=== PATIENT | male | born 1945 | race American Indian/Alaskan Native ===

== ENCOUNTER 2017-05-27 00:13 | Inpatient (IN) | payer MEDICARE, OTHER ==
[2017-05-27] MEDS ORDERED: NACL 0.9% 1000 ML 1,000 ML IV ONE (00:28)
[2017-05-27] MEDS ORDERED: LEVOPHED DRIP 4 MG/NS 250 ML 4 MG/250 ML BAG IV ONE (00:35)
--- NOTE | 2017-05-27 01:00 | Emergency Department Report ---
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 EMS reports that family states patient has been refusing to eat and take most of his medication for several days. At the scene patient was hypoxic with O2 sat in the 70s on room air because patient took off his nasal cannula. They state that patient does not appear like he wants excessive measures however , however there isn't a DO NOT RESUSCITATE signed in family states that patient has full code. Patient is lethargic but open eyes to voice. EMS reports saturation improved to the 80s with our [place]. Patient placed on BiPAP support immediately upon arrival. Upon family arrival they state the patient was recently admitted to [facility] last week and required dialysis. Patient only agreed to one dialysis and then was subsequently transferred to hospice. Dialysis catheter was removed prior to discharge into hospice. Upon arrival here patient family member hospice nurse and was discharged from hospice - Related Data Home Medications Medication Instructions Recorded Confirmed Last Taken Oxycodone HCl [Roxicodone] 5 mg PO Q6HR PRN 05/27/17 05/27/17 Unknown fentaNYL [Duragesic 50mcg] 1 each TD Q72HR 05/27/17 05/27/17 Unknown Allergies Allergy/AdvReac Type Severity Reaction Status Date / Time lisinopril AdvReac Angioedema Verified 11/03/13 10:03 ED Review of Systems ROS: Stated complaint: TJ Other details as noted in HPI Comment: Unobtainable due to pts medical conditions ED Past Medical Hx - Past Medical History Previous Medical History?: Yes Hx Hypertension: Yes Hx of Cancer: Yes (small cell caricinoma) Additional medical history: cholestorol - Surgical History Additional Surgical History: unknown - Social History Smoking Status: Unknown if ever smoked - Medications Home Medications: Home Medications Medication Instructions Recorded Confirmed Last Taken Type Oxycodone HCl [Roxicodone] 5 mg PO Q6HR PRN 05/27/17 05/27/17 Unknown History fentaNYL [Duragesic 50mcg] 1 each TD Q72HR 05/27/17 05/27/17 Unknown History ED Physical Exam - General Limitations: Physical Limitation - Other Other exam information: General: Limited by depressed mental Head exam: Atraumatic, normocephalic Eyes exam: Normal appearance, pupils equal reactive to light ENT: Dry mucous Neck exam: Normal inspection Respiratory exam: Bilateral rhonchi, tachypnea Cardiovascular: Cardiac regular rhythm Abdomen: Soft, nondistended, and nontender, with normal bowel sounds, no rebound, or guarding Rectal: Guaiac positive black stool Extremity: Lower extremity edema Back: Normal Inspection Neurologic: Lethargic, opens eyes to voice, equal hand cleaning specialist, sensation grossly intact Skin: Warm ED Course Vital Signs 05/27/17 05/27/17 05/27/17 00:16 00:17 00:25 Temperature Pulse Rate 125 H 120 H 119 H Respiratory 34 H 36 H Rate Blood Pressure Blood Pressure 55/30 [Right] O2 Sat by Pulse 99 Oximetry 05/27/17 05/27/17 05/27/17 00:35 00:45 00:46 Temperature Pulse Rate 116 H 115 H 115 H Respiratory 28 H 18 Rate Blood Pressure 78/36 Blood Pressure 58/37 78/36 [Right] O2 Sat by Pulse 100 100 Oximetry 05/27/17 05/27/17 05/27/17 01:00 01:10 01:24 Temperature Pulse Rate 114 H 112 H 115 H Respiratory 24 21 Rate Blood Pressure Blood Pressure 75/45 85/46 [Right] O2 Sat by Pulse 100 100 Oximetry 05/27/17 01:57 Temperature 98.6 F Pulse Rate Respiratory Rate Blood Pressure Blood Pressure [Right] O2 Sat by Pulse Oximetry - ABG Interpretation Ph: 7.56 PCO2: 24 PO2: 135 Bicarbonate: 21 Interpretation: respiratory alkalosis - Central Line Placement Right IJ Consent Obtained: emergent situation Time Out Performed: Yes Patient Placed on Monitor/Pulse Ox: Yes Prep: mask, gown, gloves Central Line Prep: Chlorhexidine scrub, sterile drapes applied Local Anesthesia Used: Lidocaine 1% Amount of Anesthesia Used (mls): 5 Ultrasound Used for Placement: Yes Central Line Lumen Inserted: triple Bloods Obtained for Lab: Yes Central Line Position: good blood return, sutured in place with nyl Dressing Applied: Tegaderm Post Procedure X-Ray: tip of catheter in good p Patient Tolerated Procedure: well Complications: none ED Medical Decision Making - Lab Data Result diagrams: 05/27/17 00:50 05/27/17 00:50 Lab Results 05/27/17 05/27/17 05/27/17 Range/Units 00:31 00:39 00:50 WBC 0.6 L* (4.5-11.0) K/mm3 RBC 2.48 L (3.65-5.03) M/mm3 Hgb 6.8 L (11.8-15.2) gm/dl Hct 20.3 L (35.5-45.6) % MCV 82 L (84-94) fl MCH 28 (28-32) pg MCHC 34 (32-34) % RDW 18.5 H (13.2-15.2) % Plt Count 12 L* (140-440) K/mm3 Lymph % (Auto) Photographic Colorist Seg Neutrophils % Photographic Colorist PT (12.2-14.9) Sec. INR (0.87-1.13) APTT (24.2-36.6) Sec. POC ABG pH 7.506 H 7.566 H (7.35-7.45) POC ABG pCO2 27.1 L 24.2 L (35-45) POC ABG pO2 43 L 135 H (80-105) POC ABG HCO3 21.4 21.9 POC ABG Total CO2 22 23 POC ABG O2 Sat 84 99 POC ABG Base Excess -2 0 FiO2 100 100 % Sodium (137-145) mmol/L Potassium (3.6-5.0) mmol/L Chloride (98-107) mmol/L Carbon Dioxide (22-30) mmol/L Anion Gap mmol/L BUN (9-20) mg/dL Creatinine (0.8-1.5) mg/dL Estimated GFR ml/min BUN/Creatinine Ratio % Glucose (75-100) mg/dL Lactic Acid (0.7-2.0) mmol/L Calcium (8.4-10.2) mg/dL Total Bilirubin (0.1-1.2) mg/dL AST (5-40) units/L ALT (7-56) units/L Alkaline Phosphatase (35-129) units/L Total Creatine Kinase (55-170) units/L CK-MB (CK-2) (0.0-4.0) ng/mL CK-MB (CK-2) Rel Index (0-4) Troponin T (0.00-0.029) ng/mL NT-Pro-B Natriuret Pep (0-900) pg/mL Total Protein (6.3-8.2) g/dL Albumin (3.9-5) g/dL Albumin/Globulin Ratio % Blood Type Antibody Screen 05/27/17 05/27/17 05/27/17 Range/Units 00:50 00:50 00:50 WBC (4.5-11.0) K/mm3 RBC (3.65-5.03) M/mm3 Hgb (11.8-15.2) gm/dl Hct (35.5-45.6) % MCV (84-94) fl MCH (28-32) pg MCHC (32-34) % RDW (13.2-15.2) % Plt Count (140-440) K/mm3 Lymph % (Auto) Seg Neutrophils % PT 15.8 H (12.2-14.9) Sec. INR 1.27 H (0.87-1.13) APTT 45.9 H (24.2-36.6) Sec. POC ABG pH (7.35-7.45) POC ABG pCO2 (35-45) POC ABG pO2 (80-105) POC ABG HCO3 POC ABG Total CO2 POC ABG O2 Sat POC ABG Base Excess FiO2 % Sodium 155 H (137-145) mmol/L Potassium 4.2 (3.6-5.0) mmol/L Chloride 117.6 H (98-107) mmol/L Carbon Dioxide 21 L (22-30) mmol/L Anion Gap 21 mmol/L BUN 82 H (9-20) mg/dL Creatinine 2.8 H (0.8-1.5) mg/dL Estimated GFR 27 ml/min BUN/Creatinine Ratio 29.28 % Glucose 77 (75-100) mg/dL Lactic Acid (0.7-2.0) mmol/L Calcium 6.7 L (8.4-10.2) mg/dL Total Bilirubin 2.90 H (0.1-1.2) mg/dL AST 332 H (5-40) units/L ALT 217 H (7-56) units/L Alkaline Phosphatase 346 H (35-129) units/L Total Creatine Kinase 141 (55-170) units/L CK-MB (CK-2) 2.0 (0.0-4.0) ng/mL CK-MB (CK-2) Rel Index 1.4 (0-4) Troponin T 0.135 H* (0.00-0.029) ng/mL NT-Pro-B Natriuret Pep 1268 H (0-900) pg/mL Total Protein 3.6 L (6.3-8.2) g/dL Albumin 1.4 L (3.9-5) g/dL Albumin/Globulin Ratio 0.6 % Blood Type Antibody Screen 05/27/17 05/27/17 Range/Units 00:50 00:50 WBC (4.5-11.0) K/mm3 RBC (3.65-5.03) M/mm3 Hgb (11.8-15.2) gm/dl Hct (35.5-45.6) % MCV (84-94) fl MCH (28-32) pg MCHC (32-34) % RDW (13.2-15.2) % Plt Count (140-440) K/mm3 Lymph % (Auto) Seg Neutrophils % PT (12.2-14.9) Sec. INR (0.87-1.13) APTT (24.2-36.6) Sec. POC ABG pH (7.35-7.45) POC ABG pCO2 (35-45) POC ABG pO2 (80-105) POC ABG HCO3 POC ABG Total CO2 POC ABG O2 Sat POC ABG Base Excess FiO2 % Sodium (137-145) mmol/L Potassium (3.6-5.0) mmol/L Chloride (98-107) mmol/L Carbon Dioxide (22-30) mmol/L Anion Gap mmol/L BUN (9-20) mg/dL Creatinine (0.8-1.5) mg/dL Estimated GFR ml/min BUN/Creatinine Ratio % Glucose (75-100) mg/dL Lactic Acid 4.00 H* (0.7-2.0) mmol/L Calcium (8.4-10.2) mg/dL Total Bilirubin (0.1-1.2) mg/dL AST (5-40) units/L ALT (7-56) units/L Alkaline Phosphatase (35-129) units/L Total Creatine Kinase (55-170) units/L CK-MB (CK-2) (0.0-4.0) ng/mL CK-MB (CK-2) Rel Index (0-4) Troponin T (0.00-0.029) ng/mL NT-Pro-B Natriuret Pep (0-900) pg/mL Total Protein (6.3-8.2) g/dL Albumin (3.9-5) g/dL Albumin/Globulin Ratio % Blood Type O POSITIVE Antibody Screen Negative - EKG Data -: EKG Interpreted by Me (sinus tach rate 111, low voltage QRS) - Radiology Data Radiology results: report reviewed - Medical Decision Making I discussed poor prognosis with daughter and at the bedside. It appears that patient did not want any more aggressive care and refused further dialysis treatment. Now patient is exhibiting signs of multiorgan failure. They have brought the patient to the ER and discharged the patient from hospice. I encouraged family to sign DO NOT RESUSCITATE status condition appears to be end- stage and not reversible. At this time patient is on BiPAP and receiving presses to central line. Patient received 1 L of normal saline, Levophed initiated, Ross patient antibiotics vancomycin and Zosyn ordered. Nephrology consult - Differential Diagnosis sepsis, end-stage lung cancer, UTI, pneumonia, Critical Care Time: Yes Critical care time in (mins) excluding proc time.: 65 Critical care attestation.: If time is entered above; I have spent that time in minutes in the direct care of this critically ill patient, excluding procedure time. ED Disposition Clinical Impression: Small cell carcinoma, Multiorgan failure, Pancytopenia, Septic shock, Guaiac positive stools, Elevated lactic acid level, Hypoxia, Altered mental status Disposition: DC09 OP ADMIT IP TO THIS HOSP Is pt being admited?: Yes Condition: Critical Time of Disposition: 02:13
[2017-05-27 01:31] LABS: ISTAT Base Excess -2; ISTAT HCO3 21.4; ISTAT PCO2 27.1 (35-45); ISTAT PH 7.506 (7.35-7.45); ISTAT PO2 43 (80-105); ISTAT SO2 84; ISTAT TCO2 22
[2017-05-27 01:31] LABS: ISTAT Base Excess 0; ISTAT HCO3 21.9; ISTAT PCO2 24.2 (35-45); ISTAT PH 7.566 (7.35-7.45); ISTAT PO2 135 (80-105); ISTAT SO2 99; ISTAT TCO2 23
[2017-05-27 01:33] LABS: Albumin 1.4 g/dL (3.9-5); Albumin/Globulin Ratio 0.6 %; BUN/Creatinine Ratio 29.28; Bilirubin,Total 2.9 mg/dL (0.1-1.2); Calcium 6.7 mg/dL (8.4-10.2); Chloride 117.6 mmol/L (98-107); Potassium 4.2 mmol/L (3.6-5.0); Total Protein 3.6 g/dL (6.3-8.2)
[2017-05-27 01:41] LABS: Hematocrit 20.3 % (35.5-45.6); Hemoglobin 6.8 gm/dl (11.8-15.2); Mean Corpuscular HGB Conc 34 % (32-34); Mean Corpuscular Hemoglobin 28 pg (28-32); Mean Corpuscular Volume 82 fl (84-94); Red Blood Count 2.48 M/mm3 (3.65-5.03); Red Cell Distribution Width 18.5 % (13.2-15.2)
[2017-05-27 01:48] LABS: Platelet Count 12 K/mm3 (140-440); White Blood Count 0.6 K/mm3 (4.5-11.0)
[2017-05-27] MEDS ORDERED: ZOSYN/NS 4.5GM/100ML 4.5 GM/100 ML VIAL IV ONE (01:58)
[2017-05-27] MEDS ORDERED: VANCOMYCIN/NS 1 GM/250 ML 1 GM/250 ML BAG IV ONE (01:58)
[2017-05-27] MEDS ORDERED: LEVOPHED DRIP 4 MG/NS 250 ML 4 MG/250 ML BAG IV SCH (02:00)
[2017-05-27 02:02] LABS: INR 1.27 (0.87-1.13)
[2017-05-27 02:04] LABS: Partial Thromboplastin Time 45.9 Sec. (24.2-36.6)
--- NOTE | 2017-05-27 02:50 | History and Physical Report ---
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 EMS reports that family states patient has been refusing to eat and take most of his medication for several days. At the scene patient was hypoxic with O2 sat in the 70s on room air because patient took off his nasal cannula. They state that patient does not appear like he wants excessive measures however , however there isn't a DO NOT RESUSCITATE signed in family states that patient has full code. Patient is lethargic but open eyes to voice. EMS reports saturation improved to the 80s with our [place]. Patient placed on BiPAP support immediately upon arrival. Upon family arrival they state the patient was recently admitted to [facility] last week and required dialysis. Patient only agreed to one dialysis and then was subsequently transferred to hospice. Dialysis catheter was removed prior to discharge into hospice. Upon arrival here patient family member hospice nurse and was discharged from hospice Past History Past Medical History: anemia, cancer (small cell lung carcinoma), COPD, hypertension, hyperlipidemia, renal failure Past Surgical History: Other (unknown) Social history: lives with family, AND/DNR-allow natural , other (rest is unknown) Family history: other (reviewed and not pertinent to current condition) Medications and Allergies Allergies Allergy/AdvReac Type Severity Reaction Status Date / Time lisinopril AdvReac Angioedema Verified 11/03/13 10:03 Home Medications Medication Instructions Recorded Confirmed Last Taken Type Oxycodone HCl [Roxicodone] 5 mg PO Q6HR PRN 05/27/17 05/27/17 Unknown History fentaNYL [Duragesic 50mcg] 1 each TD Q72HR 05/27/17 05/27/17 Unknown History Active Meds: Active Medications Norepinephrine (Levophed Drip 4 Mg/Ns 250 Ml) 4 mg in 250 mls @ 7.5 mls/hr IV TITR JEROMY; 2 MCG/MIN PRN Reason: Protocol Last Titration: 05/27/17 02:20 Dose: 10 mcg/min, 37.5 mls/hr Vancomycin HCl (Vancomycin/Ns 1 Gm/250 Ml) 1 gm in 250 mls @ 167.007 mls/hr IV ONCE ONE PRN Reason: Protocol Stop: 05/27/17 03:27 Review of Systems All systems: negative (all 14 Systems reviewed and found to be negative except as mentioned in HPI) Exam - Physical Exam Narrative exam: General: Limited by depressed mental Head exam: Atraumatic, normocephalic Eyes exam: Normal appearance, pupils equal reactive to light ENT: Dry mucous Neck exam: Normal inspection Respiratory exam: Bilateral rhonchi, tachypnea Cardiovascular: Cardiac regular rhythm Abdomen: Soft, nondistended, and nontender, with normal bowel sounds, no rebound, or guarding Rectal: Guaiac positive black stool Extremity: Lower extremity edema Back: Normal Inspection Neurologic: Lethargic, opens eyes to voice, equal hand flatwork folder, sensation grossly intact Skin: Warm - Constitutional Vitals: Temp Pulse Resp BP Pulse Ox 98.6 F 113 H 18 110/64 100 05/27/17 01:57 05/27/17 02:38 05/27/17 02:38 05/27/17 02:38 05/27/17 02:38 Results - Labs CBC & Chem 7: 05/27/17 00:50 05/27/17 00:50 Labs: Laboratory Last Values WBC 0.6 K/mm3 (4.5-11.0) L* 05/27/17 00:50 RBC 2.48 M/mm3 (3.65-5.03) L 05/27/17 00:50 Hgb 6.8 gm/dl (11.8-15.2) L 05/27/17 00:50 Hct 20.3 % (35.5-45.6) L 05/27/17 00:50 MCV 82 fl (84-94) L 05/27/17 00:50 MCH 28 pg (28-32) 05/27/17 00:50 MCHC 34 % (32-34) 05/27/17 00:50 RDW 18.5 % (13.2-15.2) H 05/27/17 00:50 Plt Count 12 K/mm3 (140-440) L* 05/27/17 00:50 Lymph % (Auto) Business Administration Program Chair 05/27/17 00:50 Seg Neutrophils % Business Administration Program Chair 05/27/17 00:50 PT 15.8 Sec. (12.2-14.9) H 05/27/17 00:50 INR 1.27 (0.87-1.13) H 05/27/17 00:50 APTT 45.9 Sec. (24.2-36.6) H 05/27/17 00:50 POC ABG pH 7.566 (7.35-7.45) H 05/27/17 00:39 POC ABG pCO2 24.2 (35-45) L 05/27/17 00:39 POC ABG pO2 135 (80-105) H 05/27/17 00:39 POC ABG HCO3 21.9 05/27/17 00:39 POC ABG Total CO2 23 05/27/17 00:39 POC ABG O2 Sat 99 05/27/17 00:39 POC ABG Base Excess 0 05/27/17 00:39 FiO2 100 % 05/27/17 00:39 Sodium 155 mmol/L (137-145) H 05/27/17 00:50 Potassium 4.2 mmol/L (3.6-5.0) 05/27/17 00:50 Chloride 117.6 mmol/L (98-107) H 05/27/17 00:50 Carbon Dioxide 21 mmol/L (22-30) L 05/27/17 00:50 Anion Gap 21 mmol/L 05/27/17 00:50 BUN 82 mg/dL (9-20) H 05/27/17 00:50 Creatinine 2.8 mg/dL (0.8-1.5) H 05/27/17 00:50 Estimated GFR 27 ml/min 05/27/17 00:50 BUN/Creatinine Ratio 29.28 % 05/27/17 00:50 Glucose 77 mg/dL (75-100) 05/27/17 00:50 Lactic Acid 4.00 mmol/L (0.7-2.0) H* 05/27/17 00:50 Calcium 6.7 mg/dL (8.4-10.2) L 05/27/17 00:50 Total Bilirubin 2.90 mg/dL (0.1-1.2) H 05/27/17 00:50 AST 332 units/L (5-40) H 05/27/17 00:50 ALT 217 units/L (7-56) H 05/27/17 00:50 Alkaline Phosphatase 346 units/L (35-129) H 05/27/17 00:50 Total Creatine Kinase 141 units/L (55-170) 05/27/17 00:50 CK-MB (CK-2) 2.0 ng/mL (0.0-4.0) 05/27/17 00:50 CK-MB (CK-2) Rel Index 1.4 (0-4) 05/27/17 00:50 Troponin T 0.135 ng/mL (0.00-0.029) H* 05/27/17 00:50 NT-Pro-B Natriuret Pep 1268 pg/mL (0-900) H 05/27/17 00:50 Total Protein 3.6 g/dL (6.3-8.2) L 05/27/17 00:50 Albumin 1.4 g/dL (3.9-5) L 05/27/17 00:50 Albumin/Globulin Ratio 0.6 % 05/27/17 00:50 Triglycerides 164 mg/dL (2-149) H 05/27/17 00:50 Cholesterol 153 mg/dL (50-199) 05/27/17 00:50 LDL Cholesterol Direct 115 mg/dL (50-130) 05/27/17 00:50 HDL Cholesterol 6 mg/dL (40-59) L 05/27/17 00:50 Cholesterol/HDL Ratio 25.50 % 05/27/17 00:50 Blood Type O POSITIVE 05/27/17 00:50 Antibody Screen Negative 05/27/17 00:50 - ABG Interpretation Ph: 7.56 PCO2: 24 PO2: 135 Bicarbonate: 21 Interpretation: respiratory alkalosis - Imaging and Cardiology Imaging and Cardiology: EKG Data -: EKG Interpreted by Wa (sinus tach rate 111, low voltage QRS) Chest x-ray - showing bilateral Perihilar opacities representing infiltrates and or underlying tumor, there is also additional left basilar consolidation representing during atelectasis and or infiltrate. Superimposed diffuse prominence of the interstitial lung markings throughout the left lung. Small left pleural effusion. Assessment and Plan Assessment and plan: Assessment and plan - Advanced end stage terminal lung cancer Septic shock Acute on chronic hypoxic respiratory failure Adult failure to thrive Multiorgan failure Pancytopenia Plan - initially patient was treated aggressively with IV fluid started on pressors and placed on BiPAP After discussion with the family and with the patient patient is awake alert on communicating bowel and I started the patient and the family's wishes he was made a DO NOT RESUSCITATE patient and the family wished the patient to be comfort care on the sole on his aggressive medical management was discontinued the pressors were discontinued just continue the IV fluids he was made a DO NOT RESUSCITATE and allow natural . This order was instituted and placed on the chart. Video start the patient on when necessary morphine and Ativan for comfort care Total critical care time spent 55 minutes Addendum -patient in the morning. Time of 7:39 AM. Advance Directives: Yes VTE prophylaxis?: Not ordered Contraindication Mechanical VTE Prophylaxis: Treatment Not Indicated Reason for no VTE Prophylaxis: Palliative care Plan of care discussed with patient/family: Yes
[2017-05-27] MEDS ORDERED: PROVENTIL IH PRN (02:51)
[2017-05-27] MEDS ORDERED: MORPHINE IV PRN (03:00)
[2017-05-27] MEDS ORDERED: ATIVAN IV PRN (03:00)
[2017-05-27] MEDS ORDERED: D5NS 1,000 ML IV SCH (03:00)
[2017-05-27 03:01] LABS: Bilirubin,Urine NEG (Negative); Blood,Urine LG (Negative); Granular Casts,Urine 16 /LPF; Ketones,Urine NEG (Negative); Leukocyte Esterase,Urine NEG (Negative); Mucus,Urine FEW /HPF; Nitrite,Urine NEG (Negative); Urobilinogen,Urine < 2.0 mg/dL (<2.0)
--- NOTE | 2017-05-27 03:29 | XRay Report ---
FINAL REPORT EXAM: XR CHEST 1V AP HISTORY: Shortness of breath, end stage small cell carcinoma. TECHNIQUE: A single frontal portable radiograph of the chest was obtained. No prior studies are available for comparison. FINDINGS: The patient is moderately rotated on the CT study. The cardiac silhouette and mediastinum are within normal limits. A right jugular central venous line terminates overlying the SVC. There are moderate bilateral perihilar opacities, which may represent infiltrates and/or patient's known tumor. There is additional consolidation in the left lower lobe, representing additional infiltrate and/or atelectasis. There is a small left pleural effusion. Nonspecific prominence of the interstitial markings is seen in the left lung, which may indicate asymmetric interstitial edema, pneumonitis, or possibly lymphangitic spread of tumor. There is no pneumothorax. No significant osseous abnormalities are identified. Given these multiple findings, direct comparison with prior examinations is recommended. IMPRESSION: 1. Bilateral perihilar opacities, representing infiltrates and/or underlying tumor. 2. Additional left basilar consolidation, representing atelectasis and/or infiltrate. Superimposed diffuse prominence of the interstitial lung markings throughout the left lung. Small left pleural effusion.
[2017-05-27 04:03] LABS: Basophils % (Manual) 0 % (0.0-1.8); Blastocytes % (Manual) 0 %; Eosinophils % (Manual) 0 % (0.0-4.3)
[2017-05-27 04:04] LABS: Ovalocytes Few; Target Cells 1+
[2017-05-27 04:05] LABS: Diff Status Complete; Platelet Estimate Consistent w Auto
[2017-05-27] MEDS ORDERED: D5NS 1,000 ML IV ONE (04:16)
[2017-05-27 06:51] VITALS: BP 52/27
--- NOTE | 2017-05-27 07:01 | Admit Criteria Form ---
Admission Criteria Documentation: SEVERE SEPSIS Clinical Indications for Admission to Inpatient Care (Place 'X' for any and all applicable criteria): Hospital admission is needed for appropriate care of the patient because of ANY ONE of the following: [XI. Hemodynamic instability indicated by ANY ONE of the following(1)(2)(3)(4 )(5): [X]a. Vital sign abnormality not readily corrected by appropriate treatment within 12 to 24 hours indicated by ANY ONE of the following: []i) Tachycardia that persists despite appropriate treatment [X]ii) Hypotension that persists despite appropriate treatment []iii) Orthostatic vital sign changes that persist despite appropriate treatment [X]b. Vital sign abnormality that is severe indicated by ANY ONE of the following: []i. Inadequate perfusion indicated by ANY ONE of the following: [X]1) Lactic acidosis (greater than 2 mmol/L) []2) New abnormal capillary refill (greater than 3 seconds) []3) Reduced urine output []4) New altered mental status []5) Myocardial Ischemia []ii. Mean arterial pressure [A] less than 60 mm Hg []iii. Mean arterial pressure[A] less than 70 mm Hg after 30 minutes of appropriate treatment (eg, fluid resuscitation) []iv. Sustained heart rate greater than 120 beats per minute in adult []v. IV inotropic or vasopressor medication required to maintain adequate blood pressure or perfusion [X]II. Systemic or infectious condition causing severe symptoms or findings not responsive to emergency or observation care treatment (as appropriate) indicated by ANY ONE of the following: []a. Cardiac arrhythmias of immediate concern(1)(2)(3) []b. Severe endocrine disorder (eg, thyrotoxicosis, adrenal insufficiency)(4)(5) []c. Seizures (eg, new or recurrent)(6) [X]d. New-onset end organ failure or dysfunction as indicated by ANY ONE of the following: [X]i. Acute unexplained hypoxemia (eg, not from lung infection or chronic disease)(7)(8)(9) []ii. Acute renal failure as indicated by new onset of ANY ONE of the following(10)(11)(12)(13)(14): []1) 3-fold rise in serum creatinine from baseline []2) Serum creatinine greater than 4 mg/dL (354 micromoles/L) with acute rise greater than 0.5 mg/dL (44.2 micromoles/L) []3) Reduction of more than 75% in estimated glomerular filtration rate from baseline. []4) Estimated glomerular filtration rate less than 35 mL/min/1.73m2 ( 0.59 mL/sec/1.73m2) in child younger than 18 years. []5) Cessation of urine output indicated by ALL of the following: []A. Adequate volume status []B. Inadequate urine output as indicated by ANY ONE of the following: []a. Urine output less than 0.3 mL/kg/hr for 24 hours []b. Anuria (urine output less than 0.1 mL/kg/hr) for 12 hours [X]iii. Acute mental status changes(15) []iv. Acute hepatic failure (eg, plasma bilirubin greater than 4 mg/ dL (68 micromoles/L), new INR greater than 2.0)(16)(17) []e. Unmanageable nausea and vomiting(18) []f. New-onset or uncontrolled central diabetes insipidus(19)(20) []g. Clinically significant dehydration(18)(21) []h. Hypoglycemia(22) []i. Acidosis (pH less than 7.35) or alkalosis (pH greater than 7.45)( 22)(23) []j. Toxic drug level that indicates need for specific monitoring or treatment(24)(25) []k. Severe electrolyte abnormalities indicated by ALL of the following( 1)(2)(3): []i. Electrolytes and associated findings are not as expected for patient baseline or acceptable treatment effects. []ii. Severe abnormalities indicated by ANY ONE of the following: []1) Sodium less than 130 mEq/L (mmol/L) (new) []2) Sodium less than 135 mEq/L (mmol/L) with ANY ONE of the following: []A. Uncorrectable (to near normal or chronic baseline) after trial of outpatient and emergency treatment []B. Altered mental status []C. Seizures []D. Severe medical etiology requiring inpatient management (eg , heart failure, hypovolemia) []3) Sodium greater than 155 mEq/L (mmol/L) []4) Sodium greater than 150 mEq/L (mmol/L) with ANY ONE of the following: []A. Uncorrectable (to near normal or chronic baseline) with outpatient and emergency treatment []B. Altered mental status []C. Seizures []D. Severe medical etiology (eg, hypovolemia, diabetes insipidus) []5) Potassium less than 2.5 mEq/L (mmol/L) despite outpatient and emergency treatment []6) Potassium less than 3 mEq/L (mmol/L) with ANY ONE of the following : []A. Weakness []B. Cardiac abnormality (eg, arrhythmia, conduction disturbance ) []C. Cardiac ischemia []D. Ileus []E. Ongoing medical cause requiring inpatient management (eg, acute renal wasting or SIADH) []F. Other severe symptoms []7) Potassium greater than 6.5 mEq/L (mmol/L) []8) Potassium greater than 5 mEq/L (mmol/L) with ANY ONE of the following: []A. Uncorrectable (to near normal or chronic baseline) with outpatient and emergency treatment []B. Severe ECG findings[A] []C. Acute worsening of renal failure (creatinine greater than 2.5 mg/dL (221 micromoles/L) or significant elevation for age and size) []D. Severe weakness []E. Severe medical etiology (eg, hemolysis, infection, drug overdose) []9) Calcium less than 7 mg/dL (1.75 mmol/L) despite outpatient and emergency treatment(5) []10) Calcium less than 8 mg/dL (2 mmol/L) with significant symptoms or findings (eg, altered mental status, muscle spasms, seizures, breathing difficulty, cardiac abnormality (eg, arrhythmia or conduction disturbance))(5) []11) Calcium greater than 14 mg/dL (3.5 mmol/L)(5) []12) Calcium greater than 12 mg/dL (3 mmol/L) with ANY ONE of the following(5): []A. Uncorrectable (to near normal or chronic baseline) with outpatient and emergency treatment []B. Significant dehydration or hypovolemia as indicated by ALL of the following(3)(6)(7): []a. Not resolved with initial treatments []b. Clinically significant dehydration as indicated by ANY ONE of the following: [](1) Vomiting refractory to outpatient treatment (ie, precluding oral rehydration) [](2) Inability to drink [](3) Hypernatremia or other electrolyte abnormality unable to be corrected with outpatient and emergency treatment [](4) Failure to remain hydrated with outpatient therapy [](5) Reduced urine output [](6) Hypotension [](7) Serious cause for dehydration requiring acute hospitalization ( eg, bowel obstruction, increased intracranial pressure, infectious cause) [](8) Child with ANY ONE of the following(8): [](i) Severe abdominal tenderness [](ii) Adequate care not available at home [](iii) Severe dehydration (greater than 9% loss of body weight) []C. Significant symptoms or findings (eg, altered mental status , cardiac abnormality (eg, arrhythmia, conduction disturbance), malignant etiology requiring inpatient treatment) []13) Phosphorus less than 1 mg/dL (0.32 mmol/L) []14) Phosphorus less than 1.5 mg/dL (0.48 mmol/L) with ANY ONE of the following: []A. Patient unresponsive to outpatient and emergency treatment []B. Significant symptoms or findings (eg, weakness, altered mental status, breathing difficulty, seizures, rhabdomyolysis) []15) Phosphorus greater than 10 mg/dL (3.2 mmol/L) []16) Phosphorus greater than 4.5 mg/dL (1.45 mmol/L) (new) with ANY ONE of the following: []A. Severe medical etiology (eg, crush injury, acute renal failure) []B. Associated hypocalcemia with significant findings (eg, neurologic symptoms, altered mental status, muscle spasms, seizures, breathing difficulty, cardiac abnormality (eg, arrhythmia, conduction disturbance)) []16) Magnesium less than 1 mg/dL (0.41 mmol/L) []17) Magnesium less than 1.5 mg/dL (0.62 mmol/L) with ANY ONE of the following: []A. Patient unresponsive to outpatient and emergency treatment []B. Associated hypocalcemia with significant findings (eg, altered mental status, muscle spasms, seizures, breathing difficulty, cardiac abnormality (eg, arrhythmia, conduction disturbance)) []C. Associated hypokalemia (potassium less than 3 mEq/L (mmol/L )) with risk of arrhythmia []18) Magnesium greater than 4 mEq/L (2 mmol/L) []19) Magnesium greater than 2.5 mEq/L (1.25 mmol/L) with significant symptoms or findings (eg, weakness, altered mental status, cardiac abnormality (eg, arrhythmia, conduction disturbance), breathing difficulty, severe medical etiology (eg, renal failure, hypovolemia)) []20) Uric acid greater than 20 mg/dL (1190 micromoles/L)(9) []21) Uric acid greater than 8 mg/dL (476 micromoles/L) with significant symptoms or findings of tumor lysis syndrome (eg, creatinine greater than 1.5 times upper limit of normal, cardiac abnormality (eg , arrhythmia, conduction disturbance), seizure)(9) []III. High fever or other high-risk infection situation as indicated by ANY ONE of the following(26)(27)(28): []a. Outpatient and observation care antimicrobial treatment unavailable, not effective, or not appropriate []b. Documented bacteremia []c. Temperature greater than 104.9 degrees F (40.5 degrees C) (oral) []d. Temperature greater than 103.1 degrees F (39.5 degrees C) (oral) or less than 96.8 degrees F (36 degrees C) (rectal) that does not respond to emergency treatment and observation care []IV. High-risk febrile neutropenia[A] as indicated by ANY ONE of the following(29)(30)(31)(32): []a. Profound neutropenia[B] anticipated to extend for more than 7 days []b. Hemodynamic instability []c. Hypoxemia []d. Tachypnea []e. Altered mental status []f. New-onset abdominal pain []g. New-onset vomiting or diarrhea []h. Oral or gastrointestinal mucositis that interferes with swallowing or causes severe diarrhea []i. Focal infection (eg, cellulitis, pneumonia, central line or catheter infection, perirectal abscess) []j. Renal insufficiency (eg, GFR of less than 30 mL/min/1.73m2 (0.5 mL/sec /1.73m2)). []k. Severe liver dysfunction (transaminase levels greater than 5 times normal) []l. Platelet count less than 50,000/mm3 (50 x109/L)(33) []m. Leukemia or lymphoma induction therapy []n. Leukemia not in complete remission or with evidence of disease progression []o. Bone marrow transplant patient []p. Alemtuzumab being used for therapy []q. [employer] Supportive Care in Cancer (MASCC) Risk Index score of less than 21[C](33)(35). []V. Isolation required (eg, tuberculosis that requires isolation, Ebola infection)[D](36)(37)(38)(39)(40) []. Gangrene that requires treatment beyond emergency or observation level care(41)(42) []VII. Antitoxin administration and ongoing observation required (eg, tetanus, botulism)(43)(44) []. Suspected infection with rapid progression or severe symptoms as indicated by ANY ONE of the following(45): []a. Streptococcal or staphylococcal toxic shock(46) []b. Diphtheria(47) []c. Hantavirus(48) []d. Severe acute respiratory syndrome(8)(49) []e. Anthrax(50) []f. Ebola[D](36)(37)(38) []g. Necrotizing soft tissue infection(41)(42) []h. Plague(50) []i. Other suspected infection that requires care beyond emergency or observation level care []VII. Severe adverse drug or systemic toxin reaction as indicated by ANY ONE of the following(24): []a. Serotonin syndrome(51)(52) []b. Neuroleptic malignant syndrome(51)(52) []c. Cholinergic syndrome with severe symptoms (eg, bronchorrhea, weakness , mental status changes, seizures)(53) []d. Anticholinergic syndrome []e. Sympathetic syndrome with severe symptoms (eg, seizures, mental status changes, cardiac dysrhythmias) []f. Other severe adverse drug or systemic toxin reaction that remains after emergency or observation level care (as appropriate) []VIII. Allergic reaction with severe symptoms (not responsive to emergency or observation care treatment as appropriate), including ANY ONE of the following(54): []a. Airway edema (pharyngeal, epiglottic, or laryngeal edema) []b. Stridor []c. Respiratory failure []d. Bronchospasm []e. Hypotension []IX. Environmental emergency (not responsive to emergency or observation care treatment as appropriate) as indicated by ANY ONE of the following(55)(56): []a. Hyperthermia []b. Heat stroke []c. Heat exhaustion []d. Hypothermia (temperature less than 95 degrees F (35 degrees C) rectal) (57) []e. Electrocution(58) []X. Complications of transplanted organ (ie, not covered elsewhere)[E] indicated by ANY ONE of the following(59): []a. Acute graft rejection (or graft vs. host disease)[F] requiring inpatient management (eg, intravenous immunosuppression)(60)(61)(62)( 63) []b. Acute failure of transplanted organ necessitating inpatient care (eg, cannot be managed in other setting) []c. Infection requiring inpatient management (eg, Hemodynamic instability, need for intravenous antimicrobial treatment)(64)(65) []d. Other complication of transplanted organ requiring inpatient management [X]XI. Systemic or Infectious Condition condition, symptom, or finding for which emergency and observation care have failed or are not considered appropriate. See General Criteria: Observation Care, General Admission Criteria or Pediatric General Admission Criteria guideline as appropriate. (Contents from SEVERE SEPSIS and SYSTEMIC OR INFECTIOUS CONDITION clinical indications for admission to inpatient care have been integrated in this form) The original [facility] content created by [facility] has been revised. The portions of the content which have been revised are identified through the use of italic text or in bold and [facility] has neither reviewed nor approved the modified material. All other unmodified content is copyright [facility]. Please see references footnoted in the original [facility] edition 2016 Admission Criteria Met: Yes
[2017-05-27] MEDS ORDERED: DUONEB *Not for PRN Use IH SCH (08:00)
[2017-05-27] MEDS ORDERED: DURAGESIC TD SCH (10:00)
== END 2017-05-27 07:35 | DRG 871 ==
LOC: ED 00:13 → CC1 02:51
PROVIDERS: ADMIT Internal Medicine Geriatric Medicine; ATTEND Internal Medicine
PROC: 4A033R1 Measurement of Arterial Saturation, Peripheral, Percutaneous Approach (ICD-10-PCS; principal; 2017-05-27)
PROC: 5A09357 Assistance with Respiratory Ventilation, Less than 24 Consecutive Hours, Continuous Positive Airway Pressure (ICD-10-PCS; 2017-05-27)
DX: A41.9 Sepsis, unspecified organism (principal); R65.21 Severe sepsis with septic shock; J96.21 Acute and chronic respiratory failure with hypoxia; D61.818 Other pancytopenia; C34.90 Malignant neoplasm of unspecified part of unspecified bronchus or lung; I10 Essential (primary) hypertension; Z66 Do not resuscitate; Z51.5 Encounter for palliative care; R62.7 Adult failure to thrive
CPT/HCPCS: 36415; 71010; 80053; 80061; 81001; 82140; 82271; 82550; 82553; 82803; 83880; 84484; 85007; 85025; 85610; 85730; 86850; 86900; 86901; 87040; 87086; 93005; 93010; J2270; J2543; J3370; J7030; J7042